=== PATIENT | female | born 1975 | race Caucasian/White ===

== ENCOUNTER 2018-09-15 09:11 | Inpatient (IN) | payer OTHER, MEDICAID ==
[~2018-09-15] VITALS: Ht 144.8 cm; Wt 98.4 kg
[~2018-09-15 09:11] MED LIST: PRAV10TA2 PO; cellcept PO; prograf PO
[2018-09-15] MEDS ORDERED: ACETAMINOPHEN 500 MG TABLET ONE (09:57)
[2018-09-15] MEDS ORDERED: SODIUM CHLORIDE 0.9% 1,000ML IVBOLUS ONE (10:00)
[2018-09-15] MEDS ORDERED: SODIUM CHLORIDE FLUSH 10ML SYR IVF ONE (10:00)
[2018-09-15 10:21] LABS: MEAN CORPUSCULAR HEMOGLOBIN 26.3 pg (27.0-34.8); MEAN CORPUSCULAR HGB CONC 32.9 g/dL (32.4-35.8); MEAN PLATELET VOLUME 8.3 fL (7.4-10.4); PLATELET COUNT 280 x10^3/uL (130-400); RED BLOOD COUNT 5.87 x10^6/uL (3.82-5.3); RED CELL DISTRIBUTION WIDTH 13.9 % (9.6-15.2)
[2018-09-15 10:30] LABS: ALBUMIN 3.3 g/dL (3.4-5.0); ANION GAP 10 mmol/L (5-15); CALCIUM 9.8 mg/dL (8.5-10.1); CHLORIDE 104 mmol/L (98-107); CREATININE 1.18 mg/dL (0.55-1.02)
[2018-09-15] MEDS ORDERED: CEFTRIAXONE PMX 1GM/50ML 50 ML IVPB ONE (10:30)
[2018-09-15] MEDS ORDERED: CEFTRIAXONE PMX 1GM/50ML 50 ML ONE (10:34)
[2018-09-15 10:37] LABS: CULTURE INDICATED? YES; MICROSCOPIC INDICATED
[2018-09-15 10:44] LABS: MD YES
[2018-09-15 10:46] LABS: <RBC MORPHOLOGY> NORMAL; BANDS%(MANUAL) 7 % (0-7); LYMPH#(MANUAL) 1.41 x10^3/uL (1-3.4); LYMPHS% (MANUAL) 9 % (22-44); SEG#(MANUAL) 13.19 x10^3/uL (1.8-6.8); SEGS% (MANUAL) 84 % (42-75)
[2018-09-15 10:47] LABS: <PLATELET ESTIMATE> ADEQUATE; <PLT MORPHOLOGY> NORMAL PLT MORPH
[2018-09-15] MEDS ORDERED: ACETAMINOPHEN 500 MG TABLET PO ONE (11:00)
[2018-09-15] MEDS ORDERED: SODIUM CHLORIDE FLUSH 10ML SYR IVF PRN ×2 (12:00)
[2018-09-15] MEDS ORDERED: SODIUM CHLORIDE 0.9% 1,000 ML IV ONE (12:00)
[2018-09-15] MEDS ORDERED: LABETALOL 5MG/ML, 20ML IVPush PRN (14:00)
[2018-09-15] MEDS ORDERED: ONDANSETRON ODT 4 MG PO PRN (14:00)
[2018-09-15] MEDS ORDERED: PHARMACY MAY ADJ FOR RENAL FX MC SCH (14:00)
[2018-09-15] MEDS ORDERED: GLUCAGON 1 MG IM PRN (14:00)
[2018-09-15] MEDS ORDERED: hydrALAzine 20 MG/ML, 1ML IVPush PRN (14:00)
[2018-09-15] MEDS ORDERED: HYDROcodone/APAP 5/325 TABLET PO PRN (14:00)
[2018-09-15] MEDS ORDERED: DOCUSATE 100 MG CAPSULE PO PRN (14:00)
[2018-09-15] MEDS ORDERED: HEPARIN 5,000 UNITS/ML, 1ML SQ SCH (14:00)
[2018-09-15] MEDS ORDERED: DEXTROSE 4 GM TAB.CHEW PO PRN (14:00)
[2018-09-15] MEDS ORDERED: VANCOMYCIN PER PHARMACY MC PRN (14:00)
[2018-09-15] MEDS ORDERED: ONDANSETRON 2MG/ML, 2ML IV PRN (14:00)
[2018-09-15] MEDS ORDERED: DEXTROSE 50%, 50ML SYRINGE IVPush PRN (14:00)
[2018-09-15 14:32] LABS: ALANINE AMINOTRANSFERASE 34 U/L (12-78); ALBUMIN 3.3 g/dL (3.4-5.0); ALKALINE PHOSPHATASE 110 U/L (45-117); BILIRUBIN, DIRECT 0.1 mg/dL (0.1-0.2); BILIRUBIN,INDIRECT 0.6 mg/dL (0.0-2.0); BILIRUBIN,TOTAL 0.7 mg/dL (0.2-1.0); THYROID STIMULATING HORMONE 0.832 mIU/L (0.358-3.740); TOTAL PROTEIN 8.5 g/dL (6.4-8.2)
[2018-09-15 14:33] LABS: VANCOMYCIN,RANDOM < 0.8 mcg/mL
[2018-09-15 14:51] LABS: O2 FLOW ROOM AIR L/min
[2018-09-15] MEDS ORDERED: PHARMACOKINETIC MONITORING MC PRN (15:00)
[2018-09-15] MEDS ORDERED: PHARMACOKINETIC CONSULTATION MC ONE (15:00)
[2018-09-15] MEDS: VANCOMYCIN 1,800 MG in SODIUM CHLORIDE 0.9% 250 ML IV SCH (16:39)
[2018-09-15 16:46] VITALS: BP 117/79
[2018-09-15] MEDS: ACETAMINOPHEN 325 MG TABLET PO PRN (18:29)
[2018-09-15] MEDS: CEFEPIME 1 GM in DEXTROSE 5% 50 ML IV SCH (18:29)
[2018-09-15] MEDS ORDERED: SIRO2TAB PO (19:44)
[2018-09-15] MEDS: SODIUM CHLORIDE 0.9% 1,000 ML IV SCH (20:15)
[2018-09-15] MEDS: SODIUM CHLORIDE FLUSH 10ML SYR IVF SCH (20:16)
[2018-09-15 21:26] VITALS: BP 120/72
[2018-09-16 03:53] VITALS: BP 128/72
[2018-09-16 05:24] LABS: ALANINE AMINOTRANSFERASE 34 U/L (12-78); ALBUMIN 2.5 g/dL (3.4-5.0); ANION GAP 10 mmol/L (5-15); CHLORIDE 109 mmol/L (98-107); CREATININE 1.01 mg/dL (0.55-1.02)
[2018-09-16 05:27] LABS: ALKALINE PHOSPHATASE 89 U/L (45-117); BILIRUBIN,TOTAL 0.4 mg/dL (0.2-1.0)
[2018-09-16 05:33] LABS: MEAN CORPUSCULAR HEMOGLOBIN 26.6 pg (27.0-34.8); MEAN CORPUSCULAR HGB CONC 33.5 g/dL (32.4-35.8); MEAN CORPUSCULAR VOLUME 79.3 fL (80-100); MEAN PLATELET VOLUME 8.4 fL (7.4-10.4); PLATELET COUNT 208 x10^3/uL (130-400); RED BLOOD COUNT 5.17 x10^6/uL (3.82-5.3); RED CELL DISTRIBUTION WIDTH 14.2 % (9.6-15.2)
[2018-09-16] MEDS: CEFEPIME 1 GM in DEXTROSE 5% 50 ML IV SCH ×2 (05:42→18:13)
[2018-09-16] MEDS: ACETAMINOPHEN 325 MG TABLET PO PRN (05:42)
[2018-09-16 06:17] LABS: MD YES
[2018-09-16 06:18] LABS: BAND#(MANUAL) 2.96 x10^3/uL; BANDS%(MANUAL) 21 % (0-7); LYMPH#(MANUAL) 1.83 x10^3/uL (1-3.4); LYMPHS% (MANUAL) 13 % (22-44); MONOS#(MANUAL) 1.13 x10^3/uL (0.3-2.7); MONOS% (MANUAL) 8 % (2-9); SEG#(MANUAL) 8.18 x10^3/uL (1.8-6.8); SEGS% (MANUAL) 58 % (42-75)
[2018-09-16 06:19] LABS: <PLATELET ESTIMATE> ADEQUATE; <PLT MORPHOLOGY> NORMAL PLT MORPH; <RBC MORPHOLOGY> NORMAL
[2018-09-16 08:00] VITALS: BP 124/70
[2018-09-16] MEDS: VANCOMYCIN 1,800 MG in SODIUM CHLORIDE 0.9% 250 ML IV SCH (08:52)
[2018-09-16] MEDS: SODIUM CHLORIDE FLUSH 10ML SYR IVF SCH ×2 (08:54→21:00)
[2018-09-16 14:18] VITALS: BP 109/70
[2018-09-16] MEDS: SODIUM CHLORIDE 0.9% 1,000 ML IV SCH (16:00)
[2018-09-16 19:17] LABS: RAPID INFLUENZA A Negative (Negative); RAPID INFLUENZA B Negative (Negative)
[2018-09-16 21:07] VITALS: BP 97/65
[2018-09-17 01:55] LABS: CLOSTRIDIUM DIFFICILE ANTIGEN NEGATIVE; CLOSTRIDIUM DIFFICILE TOXIN NEGATIVE (Negative)
[2018-09-17 02:06] VITALS: BP 137/78
[2018-09-17] MEDS: VANCOMYCIN 1,800 MG in SODIUM CHLORIDE 0.9% 250 ML IV SCH (02:59)
[2018-09-17] MEDS: CEFEPIME 1 GM in DEXTROSE 5% 50 ML IV SCH (06:11)
[2018-09-17 08:48] LABS: MEAN CORPUSCULAR HEMOGLOBIN 26.5 pg (27.0-34.8); MEAN CORPUSCULAR HGB CONC 33.4 g/dL (32.4-35.8); MEAN CORPUSCULAR VOLUME 79.3 fL (80-100); MEAN PLATELET VOLUME 8.4 fL (7.4-10.4); PLATELET COUNT 208 x10^3/uL (130-400); RED CELL DISTRIBUTION WIDTH 14.1 % (9.6-15.2)
[2018-09-17] MEDS: SODIUM CHLORIDE FLUSH 10ML SYR IVF SCH ×2 (08:50→21:00)
[2018-09-17 08:51] LABS: ALBUMIN 2.4 g/dL (3.4-5.0); ANION GAP 9 mmol/L (5-15); CALCIUM 9.6 mg/dL (8.5-10.1); CHLORIDE 110 mmol/L (98-107); CREATININE 0.95 mg/dL (0.55-1.02)
[2018-09-17 09:00] VITALS: BP 104/72
[2018-09-17 09:18] LABS: MD YES
[2018-09-17 09:19] LABS: BAND#(MANUAL) 0.48 x10^3/uL; BANDS%(MANUAL) 5 % (0-7); SEG#(MANUAL) 6.56 x10^3/uL (1.8-6.8); SEGS% (MANUAL) 69 % (42-75)
[2018-09-17 09:20] LABS: <PLATELET ESTIMATE> ADEQUATE; <PLT MORPHOLOGY> NORMAL PLT MORPH; <RBC MORPHOLOGY> NORMAL; BASOS% (MANUAL) 1 % (0-1); LYMPH#(MANUAL) 1.81 x10^3/uL (1-3.4); LYMPHS% (MANUAL) 19 % (22-44); MONOS#(MANUAL) 0.57 x10^3/uL (0.3-2.7); MONOS% (MANUAL) 6 % (2-9)
[2018-09-17] MEDS: MEROPENEM 1 GM in SODIUM CHLORIDE 0.9% 100 ML IV SCH ×2 (12:19→20:01)
[2018-09-17 12:24] VITALS: BP 110/76
[2018-09-17] MEDS: POTASSIUM CHLORIDE 20 MEQ PACKET PO SCH (16:46)
[2018-09-17 20:11] VITALS: BP 112/75
[2018-09-18 00:46] VITALS: BP 116/74
[2018-09-18] MEDS: MEROPENEM 1 GM in SODIUM CHLORIDE 0.9% 100 ML IV SCH ×3 (04:28→22:54)
[2018-09-18] MEDS: POTASSIUM CHLORIDE 20 MEQ PACKET PO SCH ×2 (08:57→17:44)
[2018-09-18] MEDS: SODIUM CHLORIDE FLUSH 10ML SYR IVF SCH ×2 (08:57→21:00)
[2018-09-18] MEDS: SIROLIMUS 2 MG HOMEMEDPO SCH (09:30)
[2018-09-18 09:31] LABS: ALBUMIN 2.2 g/dL (3.4-5.0); ANION GAP 10 mmol/L (5-15); CALCIUM 9.3 mg/dL (8.5-10.1); CHLORIDE 111 mmol/L (98-107); CREATININE 0.88 mg/dL (0.55-1.02)
[2018-09-18 13:35] VITALS: BP 102/70
[2018-09-18] MEDS: ACETAMINOPHEN 325 MG TABLET PO PRN (17:59)
[2018-09-18 19:32] VITALS: BP 100/60
[2018-09-19 00:58] VITALS: BP 100/61
[2018-09-19 05:57] LABS: ALANINE AMINOTRANSFERASE 43 U/L (12-78); ALBUMIN 2.2 g/dL (3.4-5.0); CHLORIDE 108 mmol/L (98-107)
[2018-09-19 06:00] LABS: ALKALINE PHOSPHATASE 97 U/L (45-117); ANION GAP 9 mmol/L (5-15); BILIRUBIN,TOTAL 0.3 mg/dL (0.2-1.0); CALCIUM 9.5 mg/dL (8.5-10.1); TOTAL PROTEIN 6.5 g/dL (6.4-8.2)
[2018-09-19 07:20] VITALS: BP 103/69
[2018-09-19] MEDS: SIROLIMUS 2 MG HOMEMEDPO SCH (08:01)
[2018-09-19] MEDS: POTASSIUM CHLORIDE 20 MEQ PACKET PO SCH ×2 (08:01→17:50)
[2018-09-19] MEDS: MEROPENEM 1 GM in SODIUM CHLORIDE 0.9% 100 ML IV SCH ×3 (08:01→23:11)
[2018-09-19] MEDS: SODIUM CHLORIDE FLUSH 10ML SYR IVF SCH ×2 (08:02→21:29)
[2018-09-19] MEDS ORDERED: SIROLIMUS 2 MG PO SCH (09:00)
[2018-09-19 13:16] VITALS: BP 114/64
[2018-09-19 22:03] VITALS: BP 102/67
[2018-09-20 02:00] VITALS: BP 105/64
[2018-09-20] MEDS: MEROPENEM 1 GM in SODIUM CHLORIDE 0.9% 100 ML IV SCH ×2 (07:39→22:30)
[2018-09-20 07:50] VITALS: BP 94/61
[2018-09-20] MEDS: SIROLIMUS 2 MG HOMEMEDPO SCH (08:41)
[2018-09-20] MEDS: POTASSIUM CHLORIDE 20 MEQ PACKET PO SCH ×2 (08:41→17:00)
[2018-09-20] MEDS ORDERED: POTASSIUM PHOS 4.4 MEQ/ML IV ONE (09:00)
[2018-09-20] MEDS: SODIUM CHLORIDE FLUSH 10ML SYR IVF SCH ×3 (09:00→22:31)
[2018-09-20] MEDS ORDERED: POTASSIUM PHOSPHATE 22 MEQ in SODIUM CHLORIDE 0.9% 500 ML IV ONE (09:30)
[2018-09-20 12:17] VITALS: BP 109/73
[2018-09-20] MEDS ORDERED: ERTA1VIA IM (15:02)
[2018-09-20 20:13] VITALS: BP 121/81
[2018-09-21 02:41] VITALS: BP 126/81
[2018-09-21 05:35] LABS: BASOPHILS # (AUTO) 0.07 x10^3/uL (0-0.1); BASOPHILS % (AUTO) 1 % (0-1); EOSINOPHILS # (AUTO) 0.11 x10^3/uL (0-0.4); EOSINOPHILS % (AUTO) 1 % (1-7); LYMPHOCYTES # (AUTO) 2.49 x10^3/uL (1-3.4); LYMPHOCYTES % (AUTO) 28 % (22-44); MD NO; MEAN CORPUSCULAR HEMOGLOBIN 26.4 pg (27.0-34.8); MEAN CORPUSCULAR HGB CONC 32.8 g/dL (32.4-35.8); MEAN CORPUSCULAR VOLUME 80.5 fL (80-100); MEAN PLATELET VOLUME 8.2 fL (7.4-10.4); MONOCYTES # (AUTO) 0.73 x10^3/uL (0.2-0.8); MONOCYTES % (AUTO) 8 % (2-9); NEUTROPHILS # (AUTO) 5.38 x10^3/uL (1.8-6.8); NEUTROPHILS % (AUTO) 61 % (42-75); PLATELET COUNT 366 x10^3/uL (130-400); RED BLOOD COUNT 4.92 x10^6/uL (3.82-5.3); RED CELL DISTRIBUTION WIDTH 14.4 % (9.6-15.2)
[2018-09-21 05:38] LABS: CHLORIDE 109 mmol/L (98-107)
[2018-09-21 05:46] LABS: ALANINE AMINOTRANSFERASE 38 U/L (12-78); ALBUMIN 2.4 g/dL (3.4-5.0); ALKALINE PHOSPHATASE 109 U/L (45-117); ANION GAP 7 mmol/L (5-15); BILIRUBIN,TOTAL 0.3 mg/dL (0.2-1.0); CALCIUM 9.4 mg/dL (8.5-10.1); CREATININE 0.74 mg/dL (0.55-1.02); TOTAL PROTEIN 6.8 g/dL (6.4-8.2)
[2018-09-21] MEDS: MEROPENEM 1 GM in SODIUM CHLORIDE 0.9% 100 ML IV SCH ×2 (08:00→15:29)
[2018-09-21] MEDS: POTASSIUM CHLORIDE 20 MEQ PACKET PO SCH (08:00)
[2018-09-21] MEDS: SIROLIMUS 2 MG HOMEMEDPO SCH (08:01)
[2018-09-21 08:06] VITALS: BP 86/47
[2018-09-21] MEDS: SODIUM CHLORIDE FLUSH 10ML SYR IVF SCH (09:00)
[2018-09-21 13:43] VITALS: BP 114/76
[2018-09-21] MEDS: ACETAMINOPHEN 325 MG TABLET PO PRN (15:36)
== END 2018-09-21 16:58 | disposition home or self-care (01) | DRG 698 ==
LOC: ED 11:55 → EDIP 12:00 → 4WST 14:13 → 4EST 09-20 18:07
PROVIDERS: ADMIT Hospitalist; ATTEND Family Medicine
PROC: 0T9B70Z Drainage of Bladder with Drainage Device, Via Natural or Artificial Opening (ICD-10-PCS; principal; 2018-09-15)
DX: T86.19 Other complication of kidney transplant (principal); A41.9 Sepsis, unspecified organism; N17.9 Acute kidney failure, unspecified; I13.2 Hypertensive heart and chronic kidney disease with heart failure and with stage 5 chronic kidney disease, or end stage renal disease; N13.6 Pyonephrosis; E44.0 Moderate protein-calorie malnutrition; E11.22 Type 2 diabetes mellitus with diabetic chronic kidney disease; E87.6 Hypokalemia; F43.21 Adjustment disorder with depressed mood; Z82.49 Family history of ischemic heart disease and other diseases of the circulatory system; Z79.899 Other long term (current) drug therapy; Z82.41 Family history of sudden cardiac death; Z82.5 Family history of asthma and other chronic lower respiratory diseases; Z86.19 Personal history of other infectious and parasitic diseases; Z87.440 Personal history of urinary (tract) infections; Z99.2 Dependence on renal dialysis; N83.202 Unspecified ovarian cyst, left side; Z53.20 Procedure and treatment not carried out because of patient's decision for unspecified reasons; Z88.8 Allergy status to other drugs, medicaments and biological substances
CPT/HCPCS: 36415; 36600; 71046; 71250; 74176; 80048; 80053; 80069; 80076; 80195; 80202; 81001; 82040; 82533; 82803; 83605; 83735; 84100; 84145; 84443; 85025; 87040; 87086; 87324; 87400; 93005; 96361; 96365; G0378; J0692; J0696; J2185; J3370; J7517; J7030; J7040; J7050

== ENCOUNTER → 2020-11-14 | Outpatient (CLI) | payer MEDICARE, MEDICAID ==
[~2020-11-14] MED LIST changes: +ERTA1VIA IM; +SIRO2TAB PO
[2020-11-14 09:30] LABS: MICROSCOPIC AUTO
== END | disposition home or self-care (01) ==
LOC: LAB 09:02
PROVIDERS: ATTEND Nurse Practitioner Gerontology
DX: I12.9 Hypertensive chronic kidney disease with stage 1 through stage 4 chronic kidney disease, or unspecified chronic kidney disease (principal); E11.22 Type 2 diabetes mellitus with diabetic chronic kidney disease; N18.2 Chronic kidney disease, stage 2 (mild); E55.9 Vitamin D deficiency, unspecified; E78.5 Hyperlipidemia, unspecified; N25.81 Secondary hyperparathyroidism of renal origin; R74.01 Elevation of levels of liver transaminase levels; Z87.448 Personal history of other diseases of urinary system; Z94.0 Kidney transplant status; Z68.38 Body mass index [BMI] 38.0-38.9, adult
CPT/HCPCS: 81001; 87077; 87086; 87186

== ENCOUNTER 2020-11-27 16:03 | Outpatient (CLI) | payer MEDICARE, MEDICAID | END 2020-11-27 23:59 | disposition home or self-care (01) | LOC: LAB 16:03 | PROVIDERS: ATTEND Nurse Practitioner Family | DX: I12.9 Hypertensive chronic kidney disease with stage 1 through stage 4 chronic kidney disease, or unspecified chronic kidney disease (principal); E11.22 Type 2 diabetes mellitus with diabetic chronic kidney disease; R74.01 Elevation of levels of liver transaminase levels; E55.9 Vitamin D deficiency, unspecified; E78.5 Hyperlipidemia, unspecified; N25.81 Secondary hyperparathyroidism of renal origin; N18.2 Chronic kidney disease, stage 2 (mild); Z87.448 Personal history of other diseases of urinary system; Z94.0 Kidney transplant status | CPT/HCPCS: 87077; 87086; 87184; 87186 ==

== ENCOUNTER → 2021-01-07 | Outpatient (CLI) | payer MEDICARE, MEDICAID ==
[2021-01-07 14:56] LABS: MICROSCOPIC NOT IND
[2021-01-07 15:00] LABS: BASOPHILS % (AUTO) 2 % (0-1); EOSINOPHILS % (AUTO) 2 % (1-7); LYMPHOCYTES % (AUTO) 30 % (22-44); MEAN CORPUSCULAR HEMOGLOBIN 25.9 pg (27.0-34.8); MEAN CORPUSCULAR HGB CONC 32.9 g/dL (32.4-35.8); MEAN PLATELET VOLUME 7.7 fL (7.4-10.4); MONOCYTES % (AUTO) 6 % (2-9); NEUTROPHILS % (AUTO) 61 % (42-75); PLATELET COUNT 311 x10^3/uL (130-400); RED BLOOD COUNT 5.05 x10^6/uL (3.82-5.3)
[2021-01-07 15:08] LABS: CHLORIDE 109 mmol/L (98-107)
[2021-01-07 15:10] LABS: ALANINE AMINOTRANSFERASE 72 U/L (12-78); ALBUMIN 3.4 g/dL (3.4-5.0); ALKALINE PHOSPHATASE 106 U/L (45-117); ANION GAP 8 mmol/L (5-15); BILIRUBIN,TOTAL 0.3 mg/dL (0.2-1.0); C-REACTIVE PROTEIN, QUANT 0.64 mg/dL (0.02-0.49); CALCIUM 9.5 mg/dL (8.5-10.1); CREATININE 0.94 mg/dL (0.55-1.02); TOTAL PROTEIN 7.6 g/dL (6.4-8.2)
[2021-01-07 15:34] LABS: MD MORPH REVIEW ONLY
[2021-01-07 15:35] LABS: ANISOCYTOSIS 1+; MICROCYTOSIS 1+
[2021-01-07 15:36] LABS: <PLATELET ESTIMATE> ADEQUATE; <PLT MORPHOLOGY> NORMAL PLT MORPH
[2021-01-07 15:44] LABS: HCT (SEDRATE) 39.7 % (34.6-47.8)
== END | disposition home or self-care (01) ==
LOC: LAB 14:14
PROVIDERS: ATTEND Internal Medicine Infectious Disease
DX: N10 Acute pyelonephritis (principal); R79.82 Elevated C-reactive protein (CRP); R70.0 Elevated erythrocyte sedimentation rate; Z16.12 Extended spectrum beta lactamase (ESBL) resistance
CPT/HCPCS: 36415; 80053; 81003; 85025; 85651; 86140; 87086